=== PATIENT | female | born 1980 ===

== ENCOUNTER 2017-06-14 11:16 | Emergency (ER) | payer OTHER ==
[2017-06-14 12:52] VITALS: TEMP 98.5
[2017-06-14] MEDS ORDERED: Sodium Chloride 0.9% 500 ML IV ONE (13:15)
[2017-06-14] MEDS ORDERED: Sodium Chloride 0.9% 1,000 ML ONE (13:26)
[2017-06-14 13:38] VITALS: O2SAT 100
[2017-06-14 13:46] LABS: SQUAMOUS EPITHIAL 35 /hpf (0-5); URINE BACTERIA RARE (<OCC); URINE BILIRUBIN NEGATIVE (NEGATIVE); URINE BLOOD NEGATIVE (NEGATIVE); URINE CLARITY Hazy (Clear); URINE COLOR Yellow (YELLOW); URINE GLUCOSE (UA) NORMAL (Normal); URINE LEUKOCYTE ESTERASE TRACE Leu/uL (Negative); URINE PROTEIN NEGATIVE (NEGATIVE); URINE UROBILINOGEN NORMAL mg/dL (0.2-1.0)
[2017-06-14 13:48] LABS: BASO % 0.6 % (0.0-2.0); EOS # 0.1 K/uL (0.0-0.7); EOS % 2.1 % (0.0-4.0); HEMOGLOBIN 13.9 g/dL (11.0-16.0); LYMPH # 1.6 K/uL (1.0-4.3); LYMPH % 24.7 % (20.0-40.0); MEAN CELL VOLUME 84.8 fL (81.0-99.0); MEAN CORPUSCULAR HGB CONC 34.2 g/dL (33.0-37.0); MEAN PLATELET VOLUME 7.7 fL (7.2-11.7); MONO # 0.4 K/uL (0.0-0.8); MONO % 6.4 % (0.0-10.0); NEUT # 4.4 K/uL (1.8-7.0); NEUT % 66.2 % (50.0-75.0); NRBC % 0.1 % (0.0-2.0); RBC 4.79 Mil/uL (3.80-5.20); WHITE BLOOD COUNT 6.7 K/uL (4.8-10.8)
[2017-06-14 13:51] LABS: ALB/GLOB RATIO 1.1 (1.0-2.1); ALT/SGPT 19 U/L (9-52); AST/SGOT 30 U/L (14-36); BLOOD UREA NITROGEN 12 mg/dL (7-17); CALCIUM 8.8 mg/dl (8.6-10.4); GFR AFRICAN-AMERICAN > 60; GFR NON-AFRICAN AMERICAN > 60
[2017-06-14 14:08] LABS: BARBITURATES, UR NEGATIVE (NEGATIVE); BENZODIAZEPINES, UR NEGATIVE (NEGATIVE); OPIATES, UR NEGATIVE (NEGATIVE); PHENCYCLIDINE, UR NEGATIVE (NEGATIVE)
--- NOTE | 2017-06-14 14:45 | C.PDOC ---
History Of Present Illness 37 year old female, whose PMHx includes Hypothyroidism and Hypercholesterolemia , presents to the ED for evaluation of a burning sensation to her chest which has been intermittent for the past 3 weeks. Patient also reports slight dizziness and states her symptoms are usually worse at night. She admits to occasionally eating chips before bedtime. Patient reports history of Bakers Cyst and states she stopped taking her thyroid and cholesterol medication because it was worsening her knee pain. Patient is currently undergoing physical therapy. She denies fever, chills, abdominal pain. Time Seen by Provider: 06/14/17 12:08 Chief Complaint (Nursing): Chest Pain History Per: Patient History/Exam Limitations: no limitations Onset/Duration Of Symptoms: Intermittent Episodes Current Symptoms Are (Timing): Still Present Quality: Burning Additional History Per: Patient Past Medical History Reviewed: Historical Data, Nursing Documentation, Vital Signs Vital Signs: Last Vital Signs Temp 98.5 F 06/14/17 11:23 Pulse 98 H 06/14/17 13:37 Resp 18 06/14/17 13:37 BP 149/80 06/14/17 13:37 Pulse Ox 100 06/14/17 15:07 - Medical History PMH: Hypercholesterolemia, Hypothyroidism Surgical History: No Surg Hx Family History: States: Unknown Family Hx - Social History Hx Alcohol Use: No Hx Substance Use: No - Immunization History Hx Tetanus Toxoid Vaccination: No Hx Influenza Vaccination: No Hx Pneumococcal Vaccination: No Review Of Systems Constitutional: Negative for: Fever, Chills Cardiovascular: Positive for: Other (burning sensation to chest ) Gastrointestinal: Negative for: Abdominal Pain Neurological: Positive for: Dizziness Physical Exam - Physical Exam Appears: Non-toxic, No Acute Distress, Other (mildly obese ) Skin: Normal Color, Warm, Dry Head: Atraumatic, Normacephalic Eye(s): bilateral: Normal Inspection Oral Mucosa: Moist Neck: Supple Chest: Symmetrical, No Deformity, No Tenderness Cardiovascular: Rhythm Regular, No Murmur Respiratory: Normal Breath Sounds, No Rales, No Rhonchi, No Wheezing Gastrointestinal/Abdominal: Soft, No Tenderness, No Guarding, No Rebound Extremity: Normal ROM, Capillary Refill (less than 2 seconds ), No Other ( pitting edema ) Neurological/Psych: Oriented x3, Normal Speech, Normal Cognition ED Course And Treatment - Laboratory Results Result Diagrams: 06/14/17 13:35 06/14/17 13:35 ECG: Interpreted By Me ECG Rhythm: Sinus Tachycardia Interpretation Of ECG: Sinus Tachycardia at rate 110bpm. Rate From EC O2 Sat by Pulse Oximetry: 100 (on RA) Pulse Ox Interpretation: Normal Disposition Counseled Patient/Family Regarding: Studies Performed, Diagnosis, Need For Followup - Disposition Disposition: HOME/ ROUTINE Disposition Time: 15:41 Condition: STABLE Additional Instructions: Follow up with your doctors. Instructions: Palpitations Forms: [facility] (Upper Sorbian), General Discharge Instructions, Work Excuse - POA Present On Arrival: None - Clinical Impression Clinical Impression: Palpitations - Scribe Statement The provider has reviewed the documentation as recorded by the Scribe (Belinda Bacon) Provider Attestation: All medical record entries made by the Scribe were at my direction and personally dictated by me. I have reviewed the chart and agree that the record accurately reflects my personal performance of the history, physical exam, medical decision making, and the department course for this patient. I have also personally directed, reviewed, and agree with the discharge instructions and disposition.
[2017-06-14 17:21] VITALS: BP 138/86; PULSE 90; RESP 20
--- NOTE | 2017-06-15 13:36 | CARD ---
APPROVED REPORT EKG Measurement Heart [id number] <Conclusion> Sinus tachycardia Otherwise normal ECG
== END 2017-06-14 17:21 | disposition home or self-care (01) ==
LOC: C.ER 11:16
DX: R00.2 Palpitations (principal)
CPT/HCPCS: 80053; 80324; 80345; 80346; 80349; 80353; 80358; 80361; 81001; 83992; 84443; 84484; 85025; 93005; 96360; 99284; J7040

== ENCOUNTER 2017-07-09 08:04 | Emergency (ER) | payer OTHER ==
[2017-07-09 08:12] VITALS: RESP 18
[2017-07-09] MEDS ORDERED: MethylPREDNISolone 40 mg Vial IVP STA (08:51)
[2017-07-09] MEDS ORDERED: DiphenhydrAMINE 50 mg/ml Inj IVP STA (09:08)
[2017-07-09] MEDS ORDERED: DiphenhydrAMINE 50 mg/ml Inj ONE (09:18)
--- NOTE | 2017-07-09 10:24 | C.PDOC ---
History Of Present Illness 37-year-old female, presents to the emergency department with complaints of an allergic reaction. Patient states she developed upper and lower lip swelling that started after she took dose of Diflucan yesterday. Denies any chest pain, throat swelling, rashes, shortness of breath or any other associated symptoms. No other complaints at this time. Time Seen by Provider: 07/09/17 08:39 Chief Complaint (Nursing): Allergic Reaction History Per: Patient History/Exam Limitations: no limitations Current Symptoms Are (Timing): Still Present Past Medical History Reviewed: Historical Data, Nursing Documentation, Vital Signs Vital Signs: Last Vital Signs Temp 98.7 F 07/09/17 10:49 Pulse 90 07/09/17 10:49 Resp 18 07/09/17 10:49 BP 116/70 07/09/17 10:49 Pulse Ox 99 07/09/17 10:49 - Medical History PMH: Hypercholesterolemia, Hypothyroidism Family History: States: No Known Family Hx - Social History Hx Alcohol Use: No Hx Substance Use: No - Immunization History Hx Tetanus Toxoid Vaccination: No Hx Influenza Vaccination: No Hx Pneumococcal Vaccination: No Review Of Systems Constitutional: Negative for: Fever ENT: Negative for: Throat Swelling Cardiovascular: Negative for: Chest Pain Respiratory: Negative for: Shortness of Breath Gastrointestinal: Negative for: Vomiting Skin: Positive for: Other (lip swelling). Negative for: Rash Physical Exam - Physical Exam Appears: Non-toxic, No Acute Distress Skin: Normal Color, Warm, Dry, No Rash Head: Normacephalic Eye(s): bilateral: PERRL Nose: Normal Oral Mucosa: Moist Tongue: Normal Appearing, No Swelling Lips: Swelling (upper and lower, mild.) Throat: Other (no airway compromise) Neck: Normal ROM Chest: Symmetrical Cardiovascular: Rhythm Regular, No Murmur Respiratory: Normal Breath Sounds, No Accessory Muscle Use Extremity: Normal ROM, No Deformity, No Swelling Neurological/Psych: Oriented x3, Normal Speech ED Course And Treatment O2 Sat by Pulse Oximetry: 98 (RA) Pulse Ox Interpretation: Normal Progress Note: Benadryl, Pepcid, Solumedrole Medical Decision Making Medical Decision Making: pt with mild lip swelling after taking diflucan with no swelling to tongue, no difficulty breathing or swallowing. pt feels better after medications, with dec swelling to lips. will d/c with benadryl and prednisone Disposition Counseled Patient/Family Regarding: Diagnosis, Need For Followup, Rx Given - Disposition Referrals: [facility] [Outside] Disposition: HOME/ ROUTINE Disposition Time: 11:27 Condition: IMPROVED Additional Instructions: Avoid any new foods, medication or topical substances. Take medications as prescribed. Recommend you go see an ios architect for testing. Follow up in medical clinic; return to ER for any worse symptoms. Prescriptions: DiphenhydrAMINE [Benadryl] 25 mg PO Q6 #20 cap predniSONE [predniSONE Tab] 2 tab PO DAILY #8 tab Instructions: Angioedema (DC) Forms: [facility] (Nepali), General Discharge Instructions, Work Excuse - Clinical Impression Clinical Impression: Allergic reaction - Scribe Statement The provider has reviewed the documentation as recorded by the Scribe (Jacqueline Durand) All medical record entries made by the Scribe were at my direction and personally dictated by me. I have reviewed the chart and agree that the record accurately reflects my personal performance of the history, physical exam, medical decision making, and the department course for this patient. I have also personally directed, reviewed, and agree with the discharge instructions and disposition.
[2017-07-09 10:50] VITALS: BP 116/70; PULSE 90; TEMP 98.7
[2017-07-09 11:16] VITALS: O2SAT 98
== END 2017-07-09 11:49 | disposition home or self-care (01) ==
LOC: C.ER 08:04
DX: T78.40XA Allergy, unspecified, initial encounter (principal); E78.00 Pure hypercholesterolemia, unspecified; E03.9 Hypothyroidism, unspecified
CPT/HCPCS: 96374; 96375; 99284; J1200; J2920

== ENCOUNTER 2017-07-25 09:04 | Emergency (ER) | payer OTHER ==
[2017-07-25 09:14] VITALS: BP 125/85; PULSE 100; RESP 20; TEMP 98.1; O2SAT 98
--- NOTE | 2017-07-25 09:59 | C.PDOC ---
History Of Present Illness 37 y/o female presents to the ED complaining of acute on chronic right knee pain which has been worsening over the past 2 days. No associated fall or blunt trauma. She had an MRI in January 2017 showing a minor meniscal tear, tendinopathies, and medial collateral sprain. Patient reports she has started walking more lately. She takes Tylenol occasionally without improvement. Also reports applying heating pads. Time Seen by Provider: 07/25/17 09:51 Chief Complaint (Nursing): Lower Extremity Problem/Injury History Per: Patient History/Exam Limitations: no limitations Onset/Duration Of Symptoms: Days Current Symptoms Are (Timing): Still Present Past Medical History Reviewed: Historical Data, Nursing Documentation, Vital Signs Vital Signs: Last Vital Signs Temp 98.1 F 07/25/17 09:13 Pulse 100 H 07/25/17 09:13 Resp 20 07/25/17 09:13 BP 125/85 07/25/17 09:13 Pulse Ox 98 07/25/17 09:59 - Medical History PMH: Hypercholesterolemia, Hypothyroidism Family History: States: No Known Family Hx - Social History Hx Alcohol Use: No Hx Substance Use: No - Immunization History Hx Tetanus Toxoid Vaccination: No Hx Influenza Vaccination: No Hx Pneumococcal Vaccination: No Review Of Systems Except As Marked, All Systems Reviewed And Found Negative. Musculoskeletal: Positive for: Leg Pain (right knee) Neurological: Negative for: Weakness, Numbness Physical Exam - Physical Exam Appears: Non-toxic, No Acute Distress, Other (Morbidly obese) Skin: Normal Color, Warm, Dry Head: Atraumatic, Normacephalic Eye(s): bilateral: Normal Inspection Oral Mucosa: Moist Neck: Normal ROM Chest: Symmetrical Respiratory: No Accessory Muscle Use Extremity: No Tenderness, No Deformity, No Swelling (or effusion), No Other ( crepitation) Pulses: Left Dorsalis Pedis: Normal, Right Dorsalis Pedis: Normal Neurological/Psych: Oriented x3, Normal Speech ED Course And Treatment O2 Sat by Pulse Oximetry: 98 (RA) Pulse Ox Interpretation: Normal Medical Decision Making Medical Decision Making: Impression: acute on chronic R knee pain- ? underlying arthritis/sprain multiple prior studies and MRI's 01/02 questionable small meniscal tears worse with heat therapies and using only Tylenol for pain Ice and NSAIDS educuated Disposition Doctor Will See Patient In The: Office Counseled Patient/Family Regarding: Studies Performed, Diagnosis - Disposition Referrals: [facility] [Outside] [facility] [Outside] Disposition: HOME/ ROUTINE Disposition Time: 09:59 Condition: GOOD Additional Instructions: ice packs 1/2 hour per hour, nothing hot Motrin 400-600 mg every 6 hours as needed pepcid 20 mg @ night to prevent stomach irritation from the Motrin Follow-up with outpatient Family Practice/Ortho Clinics as needed Continue weight loss with low impact exercises. Instructions: Chronic Knee Pain, Meniscal Tear (DC) Forms: [facility] (Tajik) - POA Present On Arrival: None - Clinical Impression Clinical Impression: Knee pain, right - Scribe Statement The provider has reviewed the documentation as recorded by the Scribe (Andressa Quispe) Provider Attestation: All medical record entries made by the Scribe were at my direction and personally dictated by me. I have reviewed the chart and agree that the record accurately reflects my personal performance of the history, physical exam, medical decision making, and the department course for this patient. I have also personally directed, reviewed, and agree with the discharge instructions and disposition.
== END 2017-07-25 10:12 | disposition home or self-care (01) ==
LOC: C.ER 09:04
DX: M25.561 Pain in right knee (principal)

== ENCOUNTER 2017-12-11 13:54 | Emergency (ER) | payer OTHER ==
[2017-12-11 14:01] VITALS: TEMP 98.3
--- NOTE | 2017-12-11 14:58 | C.PDOC ---
History Of Present Illness 37 yr old female w/ hx of chest pain. Chest pain started last night at 8pm sharp stabbing, better when pt rubs her chest, sometimes radiates L arm. No headache, vertigo or nausea. Pt also notes lightheadedness, without any other FND. No neck stiffness, headache, falls, nausea or vomiting. No abdominal pain, constipation or diarrhea. No dark or bloody stool. No vaginal d/c. Pt notes she had her tubes tied. Pt also notes her mother just 3d ago, and she hasnt been eating or drinking very well. No SI or HI however. She notes mild depression. No orthopnea, PND or leg swelling Time Seen by Provider: 12/11/17 14:57 Chief Complaint (Nursing): Chest Pain Past Medical History Vital Signs: Last Vital Signs Temp 98.3 F 12/11/17 13:57 Pulse 107 H 12/11/17 13:57 Resp 20 12/11/17 15:21 BP 138/102 H 12/11/17 13:57 Pulse Ox 95 12/11/17 16:43 - Medical History PMH: Hypercholesterolemia, Hypothyroidism Family History: States: Unknown Family Hx - Social History Hx Alcohol Use: No Hx Substance Use: No - Immunization History Hx Tetanus Toxoid Vaccination: No Hx Influenza Vaccination: No Hx Pneumococcal Vaccination: No Review Of Systems Constitutional: Negative for: Fever Eyes: Negative for: Pain ENT: Negative for: Ear Pain Cardiovascular: Positive for: Chest Pain. Negative for: Palpitations Respiratory: Negative for: Cough, Shortness of Breath Gastrointestinal: Negative for: Nausea, Vomiting, Abdominal Pain Genitourinary: Negative for: Dysuria, Frequency Musculoskeletal: Negative for: Neck Pain Skin: Negative for: Rash Neurological: Negative for: Weakness Psych: Positive for: Depression. Negative for: Anxiety, Psychosis, Suicidal ideation Physical Exam - Physical Exam Appears: Well, Non-toxic, No Acute Distress Skin: Normal Color, Warm, Dry Eye(s): bilateral: Normal Inspection, PERRL, EOMI Nose: Normal Tongue: Normal Appearing Lips: Normal Appearing Throat: Normal Neck: Normal Chest: Symmetrical, No Deformity, No Tenderness, No Ecchymosis, No Subcutaneous Emphysema Cardiovascular: Rhythm Regular, No Edema, No Friction Rub, No Murmur, No JVD Respiratory: Normal Breath Sounds Gastrointestinal/Abdominal: Normal Exam Back: Normal Inspection Extremity: Normal ROM Neurological/Psych: Oriented x3, Normal Speech Gait: Steady ED Course And Treatment - Laboratory Results Result Diagrams: 12/11/17 15:31 12/11/17 15:31 O2 Sat by Pulse Oximetry: 95 Medical Decision Making Medical Decision Makin yr old female w/ hx of HLD p/w chest pain, center of chest, better with palpation. No sob, orthopnea or PND. Given hx of recent in family: stressor will seek out CRISIS to see. Given tachy- and low pretest wells will seek D-dimer. Heart score: Age: 0 RF: 1 Story: 1 EK troponin pending ekg 82 nsr, no stemi 1553 Pt has normal affect and no plan of SI. Crisis consulted: to see pt. 1608 Dimer negative troponin negative xray unremarkable labs larely unremarkable pending crisis 1642 clear per crisis medically clear Heart score 2 pain improved. 1716 TSH unremarkable pain resolved, clear for d/c home Disposition - Disposition Referrals: Best Cody MD [Staff Provider] - [facility] [Outside] [facility] [Outside] Disposition: HOME/ ROUTINE Disposition Time: 16:43 Condition: GOOD Instructions: Chest Pain That Is Not Caused by the Heart (DC) Forms: [facility] (Zimbabwean) - Clinical Impression Clinical Impression: Chest pain, Chest discomfort
--- NOTE | 2017-12-11 15:33 | RAD ---
Date of service: 12/11/2017 HISTORY: Chest pain. COMPARISON: No prior. TECHNIQUE: Chest PA and lateral FINDINGS: LUNGS: No active pulmonary disease. PLEURA: No significant pleural effusion identified. No pneumothorax apparent. CARDIOVASCULAR: Normal. OSSEOUS STRUCTURES: No significant abnormalities. VISUALIZED UPPER ABDOMEN: Normal. OTHER FINDINGS: None. IMPRESSION: No active disease.
[2017-12-11 15:42] LABS: BASO # 0.1 K/uL (0.0-0.2); BASO % 1.3 % (0.0-2.0); EOS # 0.1 K/uL (0.0-0.7); EOS % 2.5 % (0.0-4.0); HEMOGLOBIN 13.5 g/dL (11.0-16.0); LYMPH # 1.7 K/uL (1.0-4.3); LYMPH % 30.7 % (20.0-40.0); MEAN CORPUSCULAR HEMOGLOBIN 28.3 pg (27.0-31.0); MEAN CORPUSCULAR HGB CONC 34.4 g/dL (33.0-37.0); MEAN PLATELET VOLUME 7.3 fL (7.2-11.7); MONO # 0.4 K/uL (0.0-0.8); MONO % 6.3 % (0.0-10.0); NEUT # 3.3 K/uL (1.8-7.0); NEUT % 59.2 % (50.0-75.0); NRBC % 0.1 % (0.0-2.0); RBC 4.77 Mil/uL (3.80-5.20); RED CELL DISTRIBUTION WIDTH 13.9 % (11.5-14.5); WHITE BLOOD COUNT 5.6 K/uL (4.8-10.8)
[2017-12-11 15:45] LABS: MEAN CELL VOLUME 82.2 fL (81.0-99.0)
[2017-12-11 15:48] LABS: ALB/GLOB RATIO 1.3 (1.0-2.1); ALBUMIN 4.3 g/dL (3.5-5.0); ALT/SGPT 30 U/L (9-52); AST/SGOT 17 U/L (14-36); BLOOD UREA NITROGEN 15 mg/dL (7-17); CALCIUM 9.4 mg/dl (8.6-10.4); GFR NON-AFRICAN AMERICAN > 60
[2017-12-11 17:31] VITALS: BP 118/70; PULSE 89; RESP 15; O2SAT 100
--- NOTE | 2017-12-12 11:45 | CARD ---
APPROVED REPORT Date of service: 12/11/2017 EKG Measurement Heart [id number] <Conclusion> Normal sinus rhythm Normal ECG
== END 2017-12-11 18:34 | disposition home or self-care (01) ==
LOC: C.ER 13:54
DX: R07.89 Other chest pain (principal)